=== PATIENT | male | born 1945 | race Caucasian/White ===

== ENCOUNTER 2017-01-01 15:27 | Emergency (ER) | payer OTHER ==
[2017-01-01 16:08] LABS: BASOPHILS 0.2 % (0-2); EOSINOPHILS 2.1 % (0-7); HEMATOCRIT 38.6 % (42.0-54.0); HEMOGLOBIN 13.3 g/dL (13.5-17.5); IMMATURE GRANULOCYTES 0.1 % (0-5); LYMPHOCYTES 17.4 % (15-50); MCH 27.8 pg (26.0-34.0); MCHC 34.5 g/dL (31.0-37.0); MCV 80.6 fL (80.0-100.0); MEAN PLATELET VOLUME 9.7 fL (7.4-10.4); MONOCYTES 6.9 % (2-11); NEUTROPHILS 73.3 % (40-80); PLATELET COUNT 221 10x3/uL (130-400); RBC 4.79 10x6/uL (4.20-6.10); RDW 13.6 % (11.5-14.5); WBC 8.7 10x3/uL (4.8-10.8)
[2017-01-01 16:21] LABS: ALBUMIN 3.6 g/dL (3.4-5.0); ALKALINE PHOSPHATASE 97 U/L (46-116); ALT (SGPT) 20 U/L (10-68); BILIRUBIN - TOTAL 0.51 mg/dL (0.2-1.3); CALC OSMOLALITY 279 mosm/kg (275-300); CALCIUM 8.4 mg/dL (8.5-10.1); CARBON DIOXIDE 26.7 mmol/L (21.0-32.0); CHLORIDE - SERUM 104 mmol/L (98-107); CREATININE - SERUM 0.8 mg/dL (0.6-1.3); GLUCOSE 133 mg/dL (74-106); POTASSIUM - SERUM 3.8 mmol/L (3.5-5.1); PROTEIN - SERUM 7.1 g/dL (6.4-8.2); SODIUM 140 mmol/L (136-145); UREA NITROGEN 10 mg/dL (7-18); eGFR NON AFRICAN AMERICAN > 90 mL/min (90-120)
[2017-01-01 16:33] LABS: CHOL - HDL RATIO 2.9 ratio (2.3-4.9); CHOLESTEROL, TOTAL 104 mg/dL (0-200); CKMB 1.4 U/L (0.0-3.6); CREATINE KINASE 77 UL (21-232); HDL CHOLESTEROL 36 mg/dL (32-96); LDL CHOLESTEROL 48 mg/dL (0-100); LDL-HDL RATIO 1.3 ratio (1.5-3.5); TRIGLYCERIDE 104 mg/dL (30-200)
[2017-01-01 16:35] LABS: TROPONIN-I < 0.017 ng/mL (0.000-0.060)
== END 2017-01-01 17:48 | disposition home or self-care (01) ==
LOC: D.ER 15:27
PROVIDERS: Emergency Medicine
DX: R07.9 Chest pain, unspecified (principal); I25.10 Atherosclerotic heart disease of native coronary artery without angina pectoris; I10 Essential (primary) hypertension; E11.9 Type 2 diabetes mellitus without complications; R05 Cough; R06.00 Dyspnea, unspecified; R11.2 Nausea with vomiting, unspecified

== ENCOUNTER 2017-11-02 20:14 | Emergency (ER) | payer OTHER ==
[2017-11-02 21:00] LABS: BASOPHILS 0.2 % (0-2); EOSINOPHILS 2.5 % (0-7); HEMATOCRIT 39.3 % (42.0-54.0); HEMOGLOBIN 13.3 g/dL (13.5-17.5); IMMATURE GRANULOCYTES 0.2 % (0-5); LYMPHOCYTES 19.1 % (15-50); MCH 27.2 pg (26.0-34.0); MCHC 33.8 g/dL (31.0-37.0); MCV 80.4 fL (80.0-100.0); MEAN PLATELET VOLUME 9.7 fL (7.4-10.4); MONOCYTES 6.4 % (2-11); NEUTROPHILS 71.6 % (40-80); PLATELET COUNT 206 10x3/uL (130-400); RBC 4.89 10x6/uL (4.20-6.10); RDW 14.1 % (11.5-14.5)
[2017-11-02 21:19] LABS: ALBUMIN 3.6 g/dL (3.4-5.0); ALKALINE PHOSPHATASE 89 U/L (46-116); ALT (SGPT) 22 U/L (10-68); BILIRUBIN - TOTAL 0.31 mg/dL (0.2-1.3); CALC OSMOLALITY 284 mosm/kg (275-300); CALCIUM 8.4 mg/dL (8.5-10.1); CARBON DIOXIDE 26.1 mmol/L (21.0-32.0); CHLORIDE - SERUM 105 mmol/L (98-107); CREATININE - SERUM 0.8 mg/dL (0.6-1.3); POTASSIUM - SERUM 3.4 mmol/L (3.5-5.1); SODIUM 143 mmol/L (136-145); UREA NITROGEN 17 mg/dL (7-18); eGFR NON AFRICAN AMERICAN > 90 mL/min (90-120)
[2017-11-02 21:28] LABS: GLUCOSE 71 mg/dL (74-106)
[2017-11-02 21:30] LABS: CHOL - HDL RATIO 2.9 ratio (2.3-4.9); CHOLESTEROL, TOTAL 103 mg/dL (0-200); CKMB 1.2 U/L (0.0-3.6); CREATINE KINASE 76 UL (21-232); HDL CHOLESTEROL 36 mg/dL (32-96); LDL CHOLESTEROL 52 mg/dL (0-100); LDL-HDL RATIO 1.4 ratio (1.5-3.5); TRIGLYCERIDE 78 mg/dL (30-200)
[2017-11-02 21:31] LABS: TROPONIN-I < 0.017 ng/mL (0.000-0.060)
== END 2017-11-02 23:39 | disposition short-term general hospital (02) ==
LOC: D.ER 20:14
PROVIDERS: Family Medicine
DX: R07.9 Chest pain, unspecified (principal); I20.0 Unstable angina; I25.10 Atherosclerotic heart disease of native coronary artery without angina pectoris; I10 Essential (primary) hypertension; E11.9 Type 2 diabetes mellitus without complications

== ENCOUNTER 2018-03-17 13:54 | Outpatient (CLI) | payer MEDICARE, MEDICAID ==
[~2018-03-17] VITALS: Ht 167.6 cm; Wt 101.2 kg
--- NOTE | ~2018-03-17 | HEMODYNAMI ---
PATIENT:SELINA BENAVIDES MEDICAL RECORD: [id number] : 49 LOCATION:D. D.2116 ADMISSION DATE: 03/17/18 Generatedon:03/19/201814:14 Patient name: SELINA BENAVIDES Patient #: [id number] SSN: D OB: 1945 Date of study: 03/19/2018 Page: Of Hemodynamic Procedure Report Patient Data Patient Demographics Procedure consent was obtained First Name: SELINA Gender: Male Last Name: MAKAYLA : 1945 Patient #: [id number] Age: 72 year(s) Race: Unknown Additional ID: [id number] Contact details Address: [address] [place] [address] [facility] State: [place] City: [place] Zip code: [address] Past Medical History Allergies Allergen Reaction Date Comments Reported Sulfa drugs 03/18/2018 Sulfa drugs 03/19/2018 Admission Admission Data Admission Date: 03/17/2018 Admission Time: 16:10 Admit Source: Other Room #: D.7 Procedure Procedure Types Cath Procedure PCI Procedure Coronary Stent Coronary Stent Initial Peripheral Cath Diagnostic Procedure Guillotine Operator Peripheral Procedures Rngva-Bphkspo-Ayx-Off Procedure Description Procedure Date Procedure Date: 03/19/2018 Procedure Start Time: 13:58 Procedure End Time: 14:13 Procedure Staff Name Function Agustin Garcia MD Performing Physician Chan Garcia RT Monitor Sanjana De La Rosa RT Scrub Guera Cox RN Nurse Leidy Norman RN Nurse Procedure Data Cath Procedure Fluoroscopy Diagnostic fluoroscopy Total fluoroscopy Time: 2.8 time: 2.8 min min Diagnostic fluoroscopy Total fluoroscopy dose: 425 dose: 425 mGy mGy Contrast Material Contrast Material Type Amount (ml) Isovue 300 85 Entry Location Entry Primary Successful Side Size Upsize Upsize Entry Closure Succes sful Closure Location (Fr) 1 (Fr) 2 (Fr) Remarks Device Remarks Femoral Right 6 Fr Exoseal artery Short Estimated blood loss: 10 ml Diagnostic catheters Device Type Used For End Catheter Placement DIAGNOSTIC UF 5Fr Abdominal catheter ([id number]) aortogram with runoff Procedure Complications No complications Procedure Medications Medication Administration Route Dosage 0.9% NaCl I.V. 100 ml/hr Oxygen etCO2 Nasal cannula 2 l/min Lidocaine 2% added to field 20 Heparin Flush Bag added to field 2 bags (1000units/500ml NS) Versed I.V. 2 mg Fentanyl I.V. 100 mcg Heparin Bolus I.V. 4000 units Versed I.V. 2 mg Fentanyl I.V. 50 mcg Hemodynamics Rest Heart Rate: 53 (bpm) Snapshots Pre Cath Intra NCS Post Cath Vital Signs Time Heart Resp SPO2 etCO2 NIBP (mmHg) Rhythm Pain Sedation Rate (ipm) (%) (mmHg) Status Level (bpm) 13:38:11 50 22 96 34.5 142/63(117) SB 0 (11) 10(A) , No pain 13:42:39 49 11 95 35.2 132/59(120) SB 0 (11) 10(A) , No pain 13:47:48 56 22 97 33.7 136/64(109) SB 0 (11) 10(A) , No pain 13:51:58 51 22 95 29.2 114/65(104) SB 0 (11) 10(A) , No pain 13:56:18 48 14 97 36 130/57(111) SB 0 (11) 10(A) , No pain 14:01:34 57 20 96 54 135/64(102) SB 0 (11) 10(A) , No pain 14:05:58 62 17 97 48.7 132/64(98) NSR 0 (11) 10(A) , No pain 14:10:20 63 16 98 44.2 128/58(100) NSR 0 (11) 10(A) , No pain Medications Time Medication Route Dose Verified Delivered Reason Notes Effectiveness by by 13:46:53 0.9% NaCl I.V. 100 Agustin Guera used for ml/hr Jose Cox mentally impaired teacher 13:47:01 Oxygen etCO2 2 Agustin Guera used for Nasal l/min Jose Cox procedure cannula RN 13:47:11 Lidocaine 2% added 20ml Agustin Velez for local to vial Jose Garcia MD anesthetic field 13:47:17 Heparin Flush added 2 Agustinmony Velez used for Bag to bags Jose Garcia MD procedure (1000units/500ml field NS) 13:58:45 Versed I.V. 2 mg Agustin Guera for sedation Jose Cox RN 13:58:52 Fentanyl I.V. 100 Agustin Guera for sedation mcg Jose Cox RN 14:03:32 Heparin Bolus I.V. 4000 Agustin Guera for units Jose denny RN 14:05:40 Versed I.V. 2 mg Agustin Guera for sedation Jose Cox RN 14:05:47 Fentanyl I.V. 50 Agustin Guera for sedation mcg Jose Cox RN Procedure Log Time Note 13:11:10 Admit Source: Other 13:11:12 Diagnostic Cath status Elective 13:11:15 Time tracking: Regular hours (M-F 7:00 - 5:00) 13:11:19 Plan of Care:Hemodynamics will remain stable., Cardiac rhythm will remain stable., Comfort level will be maintained., Respiratory function will remain adequate., Patient/ family verbilizes understanding of procedure., Procedure tolerated without complication., Recovers from procedure without complications.. 13:20:11 Sanjana Counts RT(R) sent for patient. Start room use. 13:36:47 Vital chart was started 13:46:15 Patient received from PCU to CCL 1 Alert and oriented. Tansferred to table in Supine position. 13:46:20 Warm blankets applied, and ellie hugger turned on for patient comfort. 13:46:21 Correct patient and procedure confirmed by team. 13:46:24 Signed procedure consent form obtained from patient. 13:46:27 ECG and BP/O2 sat monitors applied to patient. 13:46:29 Baseline sample Acquired. 13:46:38 Rhythm: sinus bradycardia 13:46:41 Full Disclosure recording started 13:46:53 0.9% NaCl 100 ml/hr I.V. was administered by Guera Cox RN; used for procedure; 13:47:01 Oxygen 2 l/min etCO2 Nasal cannula was administered by Guera Cox RN; used for procedure; 13:47:11 Lidocaine 2% 20ml vial added to field was administered by Agustin Garcia MD; for local anesthetic; 13:47:17 Heparin Flush Bag (1000units/500ml NS) 2 bags added to field was administered by Agustin Garcia MD; used for procedure; 13:47:20 H&P Date Dictated: 03/17/2018 Within 30 days and on chart.. 13:47:21 Pre-procedure instructions explained to patient. 13:47:22 Pre-op teaching completed and patient verbalized understanding. 13:47:27 Family unavailable. 13:47:34 Patient NPO since Midnight. 13:47:43 Patient allergic to Sulfa drugs 13:47:48 Is the patient allergic to Iodine/contrast media? No. 13:47:52 Is patient on blood thinner?Yes 13:47:55 ACC The patient was administered the following blood thiners within the last 24 hours: ACCPlavix 13:49:05 Patient diabetic? Yes. 13:49:19 If diabetic: On Metformin? Yes 13:49:47 If on Metformin: Last Dose? 03/17/2018 13:49:50 ----Pre-sedation anethsthesia assessment.---- 13:49:53 Previous problem with sedation/anesthesia? No ? 13:49:59 Snore? Yes 13:50:00 Sleep apnea? Yes 13:50:02 Deviated septum? No 13:50:02 Opens mouth fully? Yes 13:50:03 Sticks out tongue? Yes 13:50:05 Airway obstruction? No ? 13:50:08 Dentures? No ? 13:50:16 Pre procedure: left dorsailis pedis pulse 2+ Normal; easily identifiable; not easily obliterated 13:50:20 Patient pain scale 0/10 ?. 13:50:50 IV patent on arrival in right hand with 0.9% NaCl at O. 13:50:55 Lab results completed and on chart. 13:51:00 Bilateral groins area was prepped with chlora-prep and draped in sterile fashion 13:51:01 Alarms reviewed by R. N. 13:51:02 Sharps counted by scrub and verified by R.N. 13:55:43 Use device set CATH PACK 13:55:46 Use device set TAUTH PCI 13:56:02 ACIST Syringe (82186) opened to sterile field. 13:56:03 ACIST Hand Control (34621) opened to sterile field. 13:56:04 ACIST Manifold (14062) opened to sterile field. 13:56:04 Medline Cath Pack ([id number]) opened to sterile field. 13:56:05 Bag Decanter (2001S) opened to sterile field. 13:56:05 DIAGNOSTIC WIRE .035 260cm J wire (972962) opened to sterile field. 13:56:06 INFLATOR Merit BasixCompak (KI7455) opened to sterile field. 13:56:09 CHOICE PT Extra Support 182cm wire ([id number]) opened to sterile field. 13:56:11 Tegaderm 4 x 4 (1626W) opened to sterile field. 13:56:12 SHEATH Prelude 6Fr 0.035 (TZE-1R-17-035) opened to sterile field. 13:56:59 Final Timeout: patient, procedure, and site verified with staff and physician. All members of the team are in agreement. 13:57:02 Left groin site verified by team. 13:57:05 Physical assessment completed. ASA score P 2 - A patient with mild systemic disease as per Agustin Garcia MD. 13:57:08 Sedation plan: IV Moderate Sedation Medication:Versed, Fentanyl 13:58:43 Procedure started. 13:58:45 Versed 2 mg I.V. was administered by Guera Cox RN; for sedation; 13:58:49 Local anesthetic to left femerol artery with Lidocaine 2% by Agustin Garcia MD.INITIAL ACCESS ONLY 13:58:52 Fentanyl 100 mcg I.V. was administered by Guera Cox RN; for sedation; 14:00:20 GUIDE 6FR AR 2.0 SH catheter ([id number]) opened to sterile field. 14:00:35 A 6 Fr Short sheath was inserted into the Right Femoral artery 14:00:48 A DIAGNOSTIC UF 5Fr catheter ([id number]) was advanced over the wire and used for Abdominal aortogram with runoff. 14:02:28 Catheter removed. 14:02:37 6 Fr AR 2.0 SH guide catheter was inserted over the wire 14:03:32 Heparin Bolus 4000 units I.V. was administered by Guera Cox RN; for anticoagulation; 14:04:08 CHOICE PT ES wire advanced. 14:05:40 Versed 2 mg I.V. was administered by Guera Cox RN; for sedation; 14:05:44 Place stent Inflation Number: 1 A DEMOND RX 2.5 x 22 stent ([id number]) was prepped and advanced across the Mid RCA. The stent was deployed at 17 DIVYA for 0:05 (min:sec). 14:05:47 Fentanyl 50 mcg I.V. was administered by Guera Cox RN; for sedation; 14:05:54 Inflation number: 2 The stent balloon was then re-inflated across the Mid RCA to 17 DIVYA for 0:06 (min:sec). 14:06:25 Inflation number: 3 The stent balloon was then re-inflated across the Mid RCA to 21 DIVYA for 0:05 (min:sec). 14:07:09 Stent catheter was removed intact over wire. 14:07:09 Wire removed. 14:07:10 Guide catheter removed. 14:07:21 Sheath removed intact; hemostasis achieved with Exoseal to the Right Femoral artery. 14:07:26 Procedure ended.(Physican Out) 14:07:36 Fluoroscopy time 02.80 minutes. 14:07:44 Flurop Dose total: 425 14:07:44 Fluoroscopy dose: 425 mGy 14:07:47 Contrast amount:Isovue 300 85ml. 14:07:49 Sharps counted by scrub and verified by R.N. 14:08:09 Insertion/operative site no bleeding no hematoma. 14:08:16 Post-op/insertion site Right Femoral artery dressed using a 4 x 4 and Tegaderm. 14:08:26 Post right femoral artery:stable, clean and dry 14:08:27 Post Procedure Pulses reassessed and unchanged 14:08:30 Post-procedure physical assessment completed. ASA score P 2 - A patient with mild systemic disease as per Agustin Garcia MD. 14:08:32 Post procedure rhythm: unchanged. 14:08:36 Estimated blood loss: 10 ml 14:08:38 Patient needs reinforcement of post procedure teaching. 14:08:40 Post procedure instruction explained to patient.Patient verbalizes understanding. 14:09:03 Procedure Complication : No complications 14:09:05 See physician's report for complete and final results. 14:10:28 EXOSEAL 6Fr (EX600) opened to sterile field. 14:10:52 Procedure and supply charges have been captured, reviewed, submitted and are correct. 14:12:23 Vital chart was stopped 14:12:27 Report given to PCU. 14:12:30 Patient transfered to PCU with Bed. 14:13:57 Procedure ended. 14:13:57 Full Disclosure recording stopped 14:14:01 End room use (Document Last) Intervention Summary Intervention Notes Time ActionType Lesion and Equipment Used Action# Pressure Duration Attributes 14:05:44 Place stent Mid RCA DEMOND RX 2.5 x 1 17 00:06 22 stent ([id number]) 14:05:54 Reinflate Mid RCA DEMOND RX 2.5 x 2 17 00:06 stent 22 stent balloon ([id number]) 14:06:25 Reinflate Mid RCA DEMOND RX 2.5 x 3 21 00:05 stent 22 stent balloon ([id number]) Device Usage Item Name Manufacture Quantity Catalog Number Hospital Part Current Minimal Lot# / Charge Number Stock Stock Serial# Code ACIST Syringe Acist 1 52720 945113 046898 644039 20 (44953) Medical Systems [employer] ACIST Hand Acist 1 18608 021163 723424 043570 5 Control (26923) Medical Systems Inc ACIST Manifold Acist 1 33978 062608 736416 139283 5 (81490) Medical Systems Inc Medline Cath Cardinal 1 [id number] 715799 26793 004603 5 Showbie ([id number]) Bag Decanter Microtek 1 2001S 502973 14309 080072 5 (2001S) Medical Inc. DIAGNOSTIC WIRE [address] [place] 1 311536 165408 365568 295827 30 .035 260cm J wire (355248) INFLATOR Merit Merit 1 TY3614 697814 357749 591048 [facility] [employer] (CT1230) CHOICE PT Extra Atkins 1 [id number] 879765 596173 315259 5 Support 182cm Scientific wire ([id number]) Tegaderm 4 x 4 3M 1 1626W 864986 037934 016099 5 (1626W) SHEATH Prelude Merit 1 [id number]-0Q-67-35 510106 1820186 132718 5 6Fr 0.035 Medical (KXP-1E-04-035) GUIDE 6FR AR Medtronic 1 [id number] 001734 14816 307953 1 2.0 SH catheter ([id number]) DIAGNOSTIC UF Cardinal 1 [id number] 535342 412766 595457 10 5Fr catheter AskU (412750L0) DEMOND RX 2.5 x Medtronic 1 [id number] 376764 7023462 788895 5 [id number] 22 stent ([id number]) EXOSEAL 6Fr Cardinal 1 EX600 505799 538203 020914 10 (EX600) Health Signature Audit [place] Stage Time Signature Unsigned Intra-Procedure 03/19/2018 Sanjana 2:14:14 PM Counts RT(R) Signatures Monitor : Chan Garcia RT Signature : Date : Time : [address] [address]
--- NOTE | ~2018-03-17 | OP ---
PATIENT NAME: SELINA BENAVIDES MEDICAL RECORD: [id number] :49 LOCATION:D.M2 D.2117 ADMISSION DATE:03/17/18 SURGEON: PARUL RUIZ MD DATE OF OPERATION: 03/19/2018 PROCEDURES: 1. PTCA stent RCA. 2. Selective coronary angiography. INDICATION: Angina and coronary artery disease. PROCEDURE IN DETAIL: After informed consent was obtained and after detailed description of the risks, benefits as well as alternative therapies, the patient elected to proceed with angiogram and angioplasty. The right femoral area had a preexisting sheath from aortofemoral runoff. All catheters exchanged through this sheath. FINDINGS: The right coronary has 70% stenosis after the previously placed stent. This was addressed with a 2.5 x 22 mm Adrian stent taken to 21 atmospheres. Result was 0% residual stenosis. OVERALL IMPRESSION: Successful PTCA stent of the RCA going from 70% initial stenosis to 0% residual. TRANSINT:[id number] Voice Confirmation ID: [id number] DOCUMENT ID: [id number] PARUL RUIZ MD at 0924 CC: [id number] DICTATION DATE: 03/19/18 1416 PANEL MAKER: 03/19/18 1445 DIS IN 03/19/18 [facility] [id number] [place] [address]
--- NOTE | ~2018-03-17 | OP ---
PATIENT NAME: SELINA BENAVIDES MEDICAL RECORD: [id number] :49 LOCATION:D.M2 D.2117 ADMISSION DATE:03/17/18 SURGEON: PARUL RUIZ MD DATE OF OPERATION: 03/18/2018 DATE OF SERVICE: 03/18/2018 PROCEDURES: 1. PTCA stent of LAD. 2. Left heart catheterization. 3. Selective coronary angiography. 4. Left ventriculogram. INDICATION: Non-Q-wave myocardial infarction, unstable angina and coronary artery disease. DESCRIPTION OF PROCEDURE: After informed consent was obtained and after detailed description of risks, benefits as well as alternative therapies, the patient elected to proceed with angiogram and angioplasty. The right femoral area was prepped and draped in normal sterile fashion. Right femoral artery was cannulated via modified Seldinger technique with placement of 6-Tamazight sheath. All catheters exchanged through this sheath. FINDINGS: Left ventriculogram was performed in standard 30-degree VIRAMONTES view, reveals anteroapical hypokinesis. Overall ejection fraction 35% to 40%. SELECTIVE CORONARY ANGIOGRAPHY: 1. Left main is with no significant angiographic disease. 2. Left anterior descending has previously placed stents with 95% in-stent restenosis, 95% stenosis after the stents. 3. The left circumflex has moderate irregularities, but no flow-limiting stenosis. 4. The right coronary has previously placed stents with 75-80% in-stent restenosis in the mid vessel. PTCA STENT OF THE LAD: The stents used were 2.0 x 18 and 2.5 x 26, both Adrian stents. Result was 0% residual stenosis. OVERALL IMPRESSION: Successful percutaneous transluminal coronary angioplasty stent of the left anterior descending going from 95% initial stenosis to 0% residual. PLAN: For PTCA stent of the RCA in the near future. TRANSINT:[id number] Voice Confirmation ID: [id number] DOCUMENT ID: [id number] PARUL RUIZ MD at 0924 CC: [id number] DICTATION DATE: 03/18/18 1433 SUSPENDER MAKER: 03/18/18 1503 DIS IN 03/19/18 [place] [address]
--- NOTE | ~2018-03-17 | OP ---
PATIENT NAME: SELINA BENAVIDES MEDICAL RECORD: [id number] :49 LOCATION:D.M2 D.2117 ADMISSION DATE:03/17/18 SURGEON: PARUL RUIZ MD DATE OF OPERATION: 03/19/2018 PROCEDURES: 1. Aortofemoral runoff. 2. Abdominal aortography. INDICATION: Claudication and peripheral vascular disease. PROCEDURE IN DETAIL: After informed consent was obtained and after a detailed description of the risks, benefits as well as alternative therapies, the patient elected to proceed with angiogram and aortofemoral runoff. The right femoral area was prepped and draped in normal sterile fashion. Right femoral artery was cannulated via modified Seldinger technique with placement of 6-Hungarian sheath. All catheters exchanged through this sheath. FINDINGS: Abdominal aortography was performed. The catheter was pulled down for aortofemoral runoff. Abdominal aortography reveals no significant abdominal aortic disease, no dissection or aneurysm formation or renal artery stenosis. RIGHT LEG: A. Iliac: The common internal and external iliacs have mild irregularities, but no flow-limiting stenosis. No stenosis greater than 20%. B. Femoral system: The common superficial and deep femoral have moderate irregularities, but no flow-limiting stenosis. No stenosis greater than 20%. Popliteal and infrapopliteal vessels are widely patent with good 3-vessel runoff to the foot. LEFT LEG: A. Iliac: The common internal and external iliacs have mild irregularities, but no flow-limiting stenosis. No stenosis greater than 20%. B. Femoral system: The common superficial and deep femoral have moderate irregularities, but no flow-limiting stenosis. No stenosis greater than 20%. Popliteal and infrapopliteal vessels are widely patent with good 3-vessel runoff to the foot. OVERALL IMPRESSION: Minimal peripheral vascular disease is present. No flow-limiting stenosis. TRANSINT:[id number] Voice Confirmation ID: [id number] DOCUMENT ID: [id number] PARUL RUIZ MD at 0924 CC: [id number] DICTATION DATE: 03/19/18 1416 BOAT BUILDER AND REPAIRER: 03/19/18 1444 DIS IN 03/19/18 [facility] [address] [place] [address]
--- NOTE | ~2018-03-17 | MORECARE ---
CASE MANAGEMENT DISCHARGE SUMMARY PATIENT: SELINA BENAVIDES UNIT: [id number] ADM DATE: 03/17/18 AGE: 72 : [birth year] SEX: M ROOM/BED: D.7 AUTHOR: BURKE VIERA PHYSICIAN: REFERRING PHYSICIAN: PARUL RUIZ MD DATE OF SERVICE: 03/22/18 Discharge Plan Patient Name: SELINA BENAVIDES [facility] [facility] 1945 Planned Disposition: Home Anticipated Discharge Date: 03/19/18 Discharge Date: 03/19/2018 Expected LOS: 2 Initial Reviewer: [email or web address] Initial Review Date: 03/22/2018 Generated: 03/22/18 9:36 am Coverage Notice Reviewer: [email or web address] Malick Cheema Notice Issued Date-Time: 03/18/2018 14:00 Notice Type: Medicare Outpatient Observation Notice Notice Delivered To: Other Relationship to Patient: Stoper Name: Delivery Method: - Kalyn Days: Prior Verbal Notification: Recipient Understood Notice: Recipient Signature: Med Rec Note Co-signed by Attending: Coverage Notice Comment: Patient Name: SELINA BENAVIDES Page [phone] at 0836 All edits/amendments must be made on the electronic document DICTATION DATE: 03/22/18 0836 FINANCIAL REPORT SERVICE SALES AGENT: SHAHRIAR 03/22/1836 RPT#: [id number] DC DATE:03/19/18 STATUS: DIS IN [facility] [address] [place] [address] END OF REPORT
--- NOTE | ~2018-03-17 | HEMODYNAMI ---
PATIENT:SELINA BENAVIDES MEDICAL RECORD: [id number] : 49 [facility] ADMISSION DATE: 03/17/18 Generatedon:03/18/201814:33 Patient name: SELINA BENAVIDES Patient #: [id number] SSN: D OB: 1945 Date of study: 03/18/2018 Page: Of Hemodynamic Procedure Report Patient Data Patient Demographics Procedure consent was obtained First Name: SELINA Gender: Male Last Name: MAKAYLA : 1945 Patient #: [id number] Age: 72 year(s) Race: Unknown Additional ID: [id number] Contact details [address]: [address] [place] [address] [facility] State: [place] City: [place] Zip code: [address] Past Medical History Allergies Allergen Reaction Date Comments Reported Sulfa drugs 03/18/2018 Admission Admission Data Admission Date: 03/17/2018 Admission Time: 16:10 Room #: 2116 Procedure Procedure Types Cath Procedure Diagnostic Procedure [facility] w/Coronaries PCI Procedure Coronary Stent Coronary Stent Initial Procedure Description Procedure Date Procedure Date: 03/18/2018 Procedure Start Time: 14:12 Procedure End Time: 14:28 Procedure Staff Name Function Agustin Garcia MD Performing Physician Sanjana De La Rosa RT Monitor Manoj Casey RN Nurse Aubrey Brannon RT Scrub Procedure Data Cath Procedure Fluoroscopy Diagnostic fluoroscopy Total fluoroscopy Time: 4 time: 4 min min Diagnostic fluoroscopy Total fluoroscopy dose: 609 dose: 609 mGy mGy Contrast Material Contrast Material Type Amount (ml) Isovue 300 113 Entry Location Entry Primary Successful Side Size Upsize Upsize Entry Closure Succes sful Closure Location (Fr) 1 (Fr) 2 (Fr) Remarks Device Remarks Femoral Right 5 Fr 6 Fr Exoseal artery Short Estimated blood loss: 10 ml Diagnostic catheters Device Type Used For End Catheter Placement MULTIPACK Pigtail 5 Fr LV Angiography catheter MULTIPACK JL 4.0 5Fr Left Coronary catheter Angiography MULTIPACK 3DRC 5Fr Right Coronary catheter Angiography Procedure Complications No complications Procedure Medications Medication Administration Route Dosage Oxygen etCO2 Nasal cannula 2 l/min Heparin Flush Bag added to field 2 bags (1000units/500ml NS) 0.9% NaCl I.V. 100 ml/hr Fentanyl I.V. 50 mcg Versed I.V. 1 mg Fentanyl I.V. 50 mcg Versed I.V. 1 mg Heparin Bolus I.V. 4000 units Hemodynamics Rest Heart Rate: 70 (bpm) Snapshots Pre Cath Intra NCS Post Cath Vital Signs Time Heart Resp SPO2 etCO2 NIBP (mmHg) Rhythm Pain Sedation Rate (ipm) (%) (mmHg) Status Level (bpm) 14:00:28 65 16 91 21.8 156/79(128) NSR 0 (11) 10(A) , No pain 14:04:59 65 18 95 28.6 157/79(114) NSR 0 (11) 10(A) , No pain 14:09:29 69 17 95 23.3 156/75(122) NSR 0 (11) 10(A) , No pain 14:13:57 64 17 95 21.8 152/78(121) NSR 0 (11) 10(A) , No pain 14:18:15 72 17 96 24 148/100(120) NSR 0 (11) 10(A) , No pain 14:22:48 67 17 96 21.8 149/69(111) NSR 0 (11) 10(A) , No pain 14:27:14 66 17 96 23.3 150/73(126) NSR 0 (11) 10(A) , No pain Medications Time Medication Route Dose Verified Delivered Reason Notes Effectiveness by by 13:58:45 Oxygen etCO2 2 Agustin Aranda Per physician Nasal l/min Jose Casey RN cannula 13:58:58 Heparin Flush added 2 Agustin Aranda used for Bag to bags Jose Casey associate professor of economics (1000units/500ml field NS) 13:59:07 0.9% NaCl I.V. 100 Agustin Aranda Per physician ml/hr Jose Casey RN 14:13:17 Fentanyl I.V. 50 Agustin Aranda for sedation mcg Jose Casey RN 14:13:23 Versed I.V. 1 mg Agustin Aranda for sedation Jose Casey RN 14:19:51 Fentanyl I.V. 50 Agustin Aranda for sedation mcg Jose Casey RN 14:19:54 Versed I.V. 1 mg Agustin Aranda for sedation Jose Casey RN 14:20:05 Heparin Bolus I.V. 4000 Agustin Aranda for units Jose Casey RN anticoagulation Procedure Log Time Note 13:30:57 Aubrey Brannon RT(R) sent for patient. Start room use. 13:34:30 Time tracking: Regular hours (M-F 7:00 - 5:00) 13:34:35 Plan of Care:Hemodynamics will remain stable., Cardiac rhythm will remain stable., Comfort level will be maintained., Respiratory function will remain adequate., Patient/ family verbilizes understanding of procedure., Procedure tolerated without complication., Recovers from procedure without complications.. 13:52:25 Patient received from PCU to CCL 3 Alert and oriented. Tansferred to table in Supine position. 13:52:26 Warm blankets applied, and ellie hugger turned on for patient comfort. 13:52:26 Correct patient and procedure confirmed by team. 13:52:27 Signed procedure consent form obtained from patient. 13:52:28 ECG and BP/O2 sat monitors applied to patient. 13:52:28 Full Disclosure recording started 13:58:45 Oxygen 2 l/min etCO2 Nasal cannula was administered by Manoj Casey RN; Per physician; 13:58:58 Heparin Flush Bag (1000units/500ml NS) 2 bags added to field was administered by Manoj Casey RN; used for procedure; 13:59:07 0.9% NaCl 100 ml/hr I.V. was administered by Manoj Casey RN; Per physician; 13:59:09 Vital chart was started 14:02:05 Rhythm: sinus rhythm 14:02:06 Baseline sample Acquired. 14:02:11 H&P Date Dictated: 03/18/2018 Within 30 days and on chart.. 14:02:12 Pre-procedure instructions explained to patient. 14:02:12 Pre-op teaching completed and patient verbalized understanding. 14:02:14 Family in patients room. 14:02:16 Patient NPO since Midnight. 14:02:22 Patient allergic to Sulfa drugs 14:02:24 Is the patient allergic to Iodine/contrast media? No. 14:02:25 Is patient on blood thinner?Yes 14:02:27 ACC The patient was administered the following blood thiners within the last 24 hours: ACCPlavix 14:02:29 Patient diabetic? Yes. 14:02:30 If diabetic: On Metformin? Yes 14:02:36 If on Metformin: Last Dose? 03/17/2018 14:02:40 Previous problem with sedation/anesthesia? No ? 14:02:41 Snore? Yes 14:02:42 Sleep apnea? Yes 14:02:43 Deviated septum? No 14:02:43 Opens mouth fully? Yes 14:02:44 Sticks out tongue? Yes 14:02:47 Airway obstruction? Yes COPD 14:02:53 Dentures? No NO TEETH 14:02:59 Pre procedure: right dorsailis pedis pulse 1+ Palpable, but thready & weak; easily obliterated 14:03:[address] test Ulnar > 7 seconds. 14:03:04 Patient pain scale 7/10 Chest. 14:03:25 IV patent on arrival in right hand with 0.9% NaCl at O. 14:03:28 Lab results completed and on chart. 14:03:32 Right groin area was prepped with chlora-prep and draped in sterile fashion 14:03:33 Alarms reviewed by R. N. 14:03:33 Sharps counted by scrub and verified by R.N. 14:03:39 Use device set Femoral Dx 14:03:40 ACIST Syringe (77355) opened to sterile field. 14:03:40 Bag Decanter (2001S) opened to sterile field. 14:03:41 Medline Cath Pack ([id number]) opened to sterile field. 14:03:41 DIAGNOSTIC WIRE .035 260cm J wire (161071) opened to sterile field. 14:03:42 ACIST Hand Control (61215) opened to sterile field. 14:03:43 ACIST Manifold (29138) opened to sterile field. 14:03:43 DIAGNOSTIC Multipack 5Fr catheter set ([id number]) opened to sterile field. 14:03:44 Tegaderm 4 x 4 (1626W) opened to sterile field. 14:03:46 SHEATH Prelude 5Fr 0.035 (XNY-7L-40-035) opened to sterile field. 14:11:04 Final Timeout: patient, procedure, and site verified with staff and physician. All members of the team are in agreement. 14:11:05 Right groin site verified by team. 14:11:08 Physical assessment completed. ASA score P 2 - A patient with mild systemic disease as per Agustin Garcia MD. 14:11:10 Sedation plan: IV Moderate Sedation Medication:Versed, Fentanyl 14:12:19 Procedure started. 14:12:28 Local anesthetic to right femoral artery with Lidocaine 2% by Agustin Garcia MD.INITIAL ACCESS ONLY 14:12:48 A 5 Fr sheath was inserted into the Right Femoral artery 14:13:17 Fentanyl 50 mcg I.V. was administered by Manoj Casey RN; for sedation; 14:13:23 Versed 1 mg I.V. was administered by Manoj Casey RN; for sedation; 14:13:46 A MULTIPACK Pigtail 5 Fr catheter was advanced over the wire and used for LV Angiography. 14:13:48 Zero performed for pressure channel P1 14:13:52 Zero performed for pressure channel P1 14:14:39 LV gram done using VIRAMONTES 14:14:44 EF : 35 % 14:14:46 Injector settings: Ml/sec: 10, Volume: 20, 14:14:48 Catheter removed. 14:14:53 A MULTIPACK JL 4.0 5Fr catheter was advanced over the wire and used for Left Coronary Angiography. 14:15:54 Catheter removed. 14:15:59 A MULTIPACK 3DRC 5Fr catheter was advanced over the wire and used for Right Coronary Angiography. 14:16:14 Use device set [facility] PCI 14:16:15 SHEATH Prelude 6Fr 0.035 (GJM-3A-87-035) opened to sterile field. 14:16:18 INFLATOR Merit BasixCompak (FY4927) opened to sterile field. 14:16:22 CHOICE PT Extra Support 182cm wire ([id number]) opened to sterile field. 14:17:07 Catheter removed. 14:17:29 Sheath upsized to a 6 Fr Short. 14:17:38 6 Fr XBLAD 4.0 guide catheter was inserted over the wire 14:18:22 GUIDE 6FR XBLAD 4.0 catheter ([id number]) opened to sterile field. 14:18:31 CHOICE PT ES wire advanced. 14:19:51 Fentanyl 50 mcg I.V. was administered by Manoj Casey RN; for sedation; 14::54 Versed 1 mg I.V. was administered by Manoj Casey RN; for sedation; 14:20:05 Heparin Bolus 4000 units I.V. was administered by Manoj Casey RN; for anticoagulation; 14::49 Inflate balloon Inflation number: 1 A EUPHORA 2.5 x 20 Balloon ([id number]) was prepped and advanced across the Dist LAD, then inflated to 13 DIVYA for 0:10 (min:sec). 14:21:35 Inflation number: 2 The EUPHORA 2.5 x 20 Balloon ([id number]) was reinflated across the Dist LAD, to 19 DIVYA for 0:05 (min:sec). 14:21:50 Balloon removed over the wire. 14:23:04 Place stent Inflation Number: 3 A DEMOND RX 2.0 x 18 stent ([id number]) was prepped and advanced across the Dist LAD. The stent was deployed at 11 DIVYA for 0:10 (min:sec). 14:24:20 Stent catheter was removed intact over wire. 14:24:37 Place stent Inflation Number: 4 A DEMOND RX 2.5 x 26 stent ([id number]) was prepped and advanced across the Dist LAD. The stent was deployed at 19 DIVYA for 0:05 (min:sec). 14:25:00 Stent catheter was removed intact over wire. 14:25:00 Wire removed. 14:25:00 Guide catheter removed. 14:25:09 Sheath removed intact; hemostasis achieved with Exoseal to the Right Femoral artery. 14:25:11 Procedure ended.(Physican Out) 14:25:40 Fluoroscopy time 04.00 minutes. 14:25:46 Flurop Dose total: 609 14:25:46 Fluoroscopy dose: 609 mGy 14:25:49 Contrast amount:Isovue 300 113ml. 14:25:51 Sharps counted by scrub and verified by R.N. 14:25:52 Insertion/operative site no bleeding no hematoma. 14:25:54 Post-op/insertion site Right Femoral artery dressed using a 4 x 4 and Tegaderm. 14:25:58 Post right femoral artery:stable, clean and dry 14:26:00 Post Procedure Pulses reassessed and unchanged 14:26:04 Post-procedure physical assessment completed. ASA score P 2 - A patient with mild systemic disease as per Agustin Garcia MD. 14:26:09 Post procedure rhythm: unchanged. 14:26:13 Estimated blood loss: 10 ml 14:26:15 Post procedure instruction explained to patient.Patient verbalizes understanding. 14:26:15 Patient needs reinforcement of post procedure teaching. 14:26:32 Procedure type changed to Cath procedure, Diagnostic procedure, LHC, LHC w/Coronaries, PCI procedure, Coronary Stent, Coronary Stent Initial 14:26:50 Procedure Complication : No complications 14:26:52 See physician's report for complete and final results. 14:27:02 EXOSEAL 6Fr (EX600) opened to sterile field. 14:28:23 Procedure and supply charges have been captured, reviewed, submitted and are correct. 14:28:28 Vital chart was stopped 14:28:31 Report given to PCU. 14:28:34 Patient transfered to PCU with Bed. 14:28:44 Procedure ended. 14:28:44 Full Disclosure recording stopped 14:28:47 End room use (Document Last) Intervention Summary Intervention Notes Time ActionType Lesion and Equipment Used Action# Pressure Duration Attributes 14:20:49 Inflate Dist LAD EUPHORA 2.5 x 1 13 00:10 balloon 20 Balloon ([id number]) 14:21:35 Reinflate Dist LAD EUPHORA 2.5 x 2 19 00:05 balloon 20 Balloon ([id number]) 14:23:04 Place stent Dist LAD DEMOND RX 2.0 x 3 11 00:10 18 stent ([id number]) 14:24:37 Place stent Dist LAD DEMOND RX 2.5 x 4 19 00:06 26 stent ([id number]) Device Usage Item Name Manufacture Quantity Catalog Number Hospital Part Current Minimal Lot# / Charge Number Stock Stock Serial# Code ACIST Syringe Acist 1 07981 [id number] 575605 382304 20 (72972) Medical POS on [employer] Inc Bag Decanter Microtek 1 563103 23574 623030 5 () Medical Inc. Medline Cath Cardinal 1 [id number] 067821 64473 576848 5 [facility] ([id number]) DIAGNOSTIC WIRE [address] [place] 1 469848 750204 243815 277841 30 .035 260cm J wire (690532) ACIST Hand Acist 1 94737 772993 373924 946585 5 Control (35465) Medical Systems Inc ACIST Manifold Acist 1 99710 182009 418792 213259 5 (25100) Medical Systems Inc DIAGNOSTIC Cardinal 1 CX8260 700998 27335 098340 30 Multipack 5Fr Health catheter set (OG7524) Tegaderm 4 x 4 3M 1 1626W 271653 552552 454650 5 (1626W) SHEATH Prelude Merit 1 XLJ-6T-74-035 822406 456494 045545 5 5Fr 0.035 Medical (CHL-9F-75-035) MULTIPACK Cardinal 1 011953 5 Pigtail 5 Fr Health catheter MULTIPACK JL Cardinal 1 397211 5 4.0 5Fr Health catheter MULTIPACK 3DRC Cardinal 1 112320 5 5Fr catheter Health SHEATH Prelude Merit 1 PDX-5C-73-35 595990 7833708 318794 5 6Fr 0.035 Medical (JTC-0A-66-035) INFLATOR Merit Merit 1 ZJ0978 118496 221307 407944 15 [place] (YX6970) CHOICE PT Extra [place]once 1 [id number] 625077 251046 878924 5 Support 182cm Scientific wire ([id number]) GUIDE 6FR XBLAD Cardinal 1 [id number] 740465 949535 211555 3 4.0 catheter Health (79132548) EUPHORA 2.5 x Medtronic 1 [id number] 763145 421367 557101 5 [id number] 20 Balloon ([id number]) DEMOND RX 2.0 x Medtronic 1 [id number] 113516 5455422 523117 5 [id number] 18 stent ([id number]) DEMOND RX 2.5 x Medtronic 1 [id number] 345770 2802527 254507 5 [id number] 26 stent ([id number]) EXOSEAL 6Fr Cardinal 1 EX600 893271 121429 187150 10 (EX600) Health Signature Audit [place] Stage Time Signature Unsigned Intra-Procedure 03/18/2018 Sanjana 2:32:58 PM Counts RT(R) Signatures Monitor : Sanjana Signature : Counts RT Date : Time : [address] [place] [address]
--- NOTE | ~2018-03-17 | HP ---
PATIENT: SELINA KULKARNI MEDICAL RECORD: [id number] ACCOUNT: [id number] LOCATION:[address] : 49 ADMISSION DATE: 03/17/18 PCP: No PCP HISTORY AND PHYSICAL EXAMINATION ADMITTING DIAGNOSES: 1. Non-Q-wave myocardial infarction. 2. Unstable angina. 3. Coronary artery disease. 4. Previous multivessel percutaneous transluminal coronary angioplasty stent, last being in December at the [facility]. 5. Hypertension. 6. Hyperlipidemia. HISTORY OF PRESENT ILLNESS: Mr. Kulkarni presents with increasing chest pain and shortness of breath that happened just today. His troponin is mildly elevated, compatible with a non-Q-wave myocardial infarction. His EKG is markedly abnormal with T-wave inversions in the lateral leads. PHYSICAL EXAMINATION: GENERAL APPEARANCE: Well-nourished, well-developed, appears stated age. Level of distress, comfortable. PSYCHIATRIC: Mental status, alert, normal affect. Orientation, oriented to time, place and person. EYES: Lids and conjunctiva, noninjected. No discharge, no pallor. ENT: Lips, teeth, gums, normal dentition. Oropharynx, no cyanosis, no pallor. NECK: Carotid arteries, bilateral normal upstroke, no bruits, no thrills. JUGULAR VEINS: No jugular venous pressure or distention. CERVICAL LYMPH NODES: Nontender, nonenlarged. THYROID: Not enlarged. Nontender. No nodules. LUNGS: Respiratory effort, unlabored. CHEST: Normal curvature. No thoracic deformity. No chest wall tenderness. Percussion, resonant. Auscultation, clear. No wheezes, no rales, no rhonchi. CARDIOVASCULAR: Precordial exam, nondisplaced. No heaves or pericardial thrills. Rate and rhythm, regular. Heart sounds, normal S1, normal S2. No S3, no gallop, no rub. Systolic murmur, not heard. Diastolic murmur, not heard. EXTREMITIES: No cyanosis, no edema. Peripheral pulses, full and equal in all extremities, except as noted. No bruits appreciated. ABDOMEN: Soft, nondistended. Normal aorta. No bruit. Nontender. No masses. Liver, nontender, no hepatomegaly. Spleen, nontender, no splenomegaly. MUSCULOSKELETAL: No joint tenderness. No joint swelling. No erythema. NEUROLOGICAL: Normal gait, normal strength, normal tone. SKIN: Warm and dry. OVERALL IMPRESSION: Non-Q-wave myocardial infarction in a patient with a past history of multivessel percutaneous transluminal coronary angioplasty stent, most likely he has recurrent hemodynamically significant coronary artery disease. We will proceed with coronary angiography in the a.m. Further care depends upon findings of the angiography. TRANSINT:[id number] Voice Confirmation ID: [id number] DOCUMENT ID: [id number] HISTORY AND PHYSICAL [id number] SELINA KULKARNI JEFFREY MD at 0924 CC: [id number] DICTATION DATE: 03/17/18 1557 CORPSMAN: 03/17/18 1607 DIS IN 03/19/18 [facility] [address] [place] [address]
--- NOTE | ~2018-03-17 | DS ---
PATIENT:SELINA KULKARNI :49 MEDICAL RECORD: [id number] DISCHARGE SUMMARY ADMISSION DATE: 03/17/18 DISCHARGE DATE: 03/19/18 DATE OF SERVICE: 03/19/2018 DATE OF DISCHARGE: 03/19/2018 DISCHARGE DIAGNOSES: 1. Unstable angina. 2. Coronary artery disease. 3. Percutaneous transluminal coronary angioplasty stent left anterior descending and right coronary artery this admission. 4. Peripheral vascular disease. 5. Hypertension. 6. Hyperlipidemia. HOSPITAL COURSE: Mr. Kulkarni presents with unstable anginal symptomatology, found to have significant disease of the LAD and RCA, underwent successful PTCA stent of above territories, was discharged home with the addition of aspirin and Plavix to his medical regimen. Will follow up with [facility] in 1 month. TRANSINT:[id number] Voice Confirmation ID: [id number] DOCUMENT ID: [id number] PARUL RUIZ MD at 0924 CC: [id number] DICTATION DATE: 03/19/18 1413 BEESWAX BLEACHER: 03/20/18 0041 DIS IN 03/19/18 [place] [address] [place] [address]
[2018-03-17 14:46] LABS: BASOPHILS 0.1 % (0-2); EOSINOPHILS 2.7 % (0-7); HEMATOCRIT 38.8 % (42.0-54.0); HEMOGLOBIN 13.2 g/dL (13.5-17.5); IMMATURE GRANULOCYTES 0.2 % (0-5); LYMPHOCYTES 15.5 % (15-50); MCH 26.9 pg (26.0-34.0); MEAN PLATELET VOLUME 10.1 fL (7.4-10.4); MONOCYTES 6.8 % (2-11); NEUTROPHILS 74.7 % (40-80); PLATELET COUNT 208 10x3/uL (130-400); RBC 4.91 10x6/uL (4.20-6.10); RDW 13.8 % (11.5-14.5); WBC 8.1 10x3/uL (4.8-10.8)
[2018-03-17 15:14] LABS: ALBUMIN 3.3 g/dL (3.4-5.0); ALKALINE PHOSPHATASE 99 U/L (46-116); ALT (SGPT) 22 U/L (10-68); BILIRUBIN - TOTAL 0.28 mg/dL (0.2-1.3); CALC OSMOLALITY 293 mosm/kg (275-300); CARBON DIOXIDE 26.8 mmol/L (21.0-32.0); CHLORIDE - SERUM 105 mmol/L (98-107); CREATININE - SERUM 0.9 mg/dL (0.6-1.3); POTASSIUM - SERUM 4.1 mmol/L (3.5-5.1); PROTEIN - SERUM 7.1 g/dL (6.4-8.2); SODIUM 139 mmol/L (136-145); UREA NITROGEN 18 mg/dL (7-18); eGFR NON AFRICAN AMERICAN 89 mL/min (90-120)
[2018-03-17 15:15] LABS: GLUCOSE 346 mg/dL (74-106)
[2018-03-17 15:30] LABS: CKMB 3.3 U/L (0.0-3.6); CREATINE KINASE 260 UL (21-232); PRO BNP 1907 pg/mL (0-125)
[2018-03-17 15:39] LABS: TROPONIN-I 0.717 ng/mL (0.000-0.060)
[2018-03-17 18:26] VITALS: BP 154/75; BMI 36.0
[2018-03-17 20:00] VITALS: BP 121/57
[2018-03-18 00:46] VITALS: BP 149/64
[2018-03-18 04:00] VITALS: BP 145/57
[2018-03-18 08:48] VITALS: BP 150/53
[2018-03-18 12:21] VITALS: BP 151/70
[2018-03-18 12:39] VITALS: Ht 167.6 cm; Wt 101.2 kg
[2018-03-18 16:56] VITALS: BP 144/65
[2018-03-18 23:12] VITALS: BP 130/53
[2018-03-19 02:38] VITALS: BP 130/58
[2018-03-19 06:07] VITALS: BP 144/68
[2018-03-19 08:00] VITALS: BP 136/50
[2018-03-19] MEDS ORDERED: ASPIRIN81 MG PO (15:03)
[2018-03-19] MEDS ORDERED: PLAVIX75 MG PO (15:03)
== END 2018-03-19 18:24 | disposition home or self-care (01) ==
LOC: OBSVTIME → D.ER 13:54 → D.OPS 13:54 → D.M2 16:10 → D.ER 16:10 → OBSVTIME 17:45 → D.ER 17:59 → EDSTATUS 03-18 10:00 → D.M2 03-19 18:24 → D.OPS 03-19 18:24 → D.M2 03-19 18:24
PROVIDERS: Emergency Medicine
DX: I21.4 Non-ST elevation (NSTEMI) myocardial infarction (principal); I25.110 Atherosclerotic heart disease of native coronary artery with unstable angina pectoris; I10 Essential (primary) hypertension; E78.5 Hyperlipidemia, unspecified; I73.9 Peripheral vascular disease, unspecified
CPT/HCPCS: 93458; C9600 ×2

== ENCOUNTER 2018-03-24 12:52 | Outpatient (CLI) | payer MEDICARE, MEDICAID ==
[~2018-03-24] VITALS: Ht 167.6 cm; Wt 99.8 kg
--- NOTE | ~2018-03-24 | OP ---
PATIENT NAME: SELINA BENAVIDES MEDICAL RECORD: [id number] :49 LOCATION:D.M2 D.2119 ADMISSION DATE:03/24/18 SURGEON: PARUL RUIZ MD DATE OF OPERATION: 03/25/2018 PROCEDURES: 1. PTCA stent left main. 2. PTCA stent LAD. 3. Intravascular ultrasound of left main. 4. Intravascular ultrasound of the LAD. 5. Left heart catheterization. 6. Selective coronary angiography. 7. Left ventriculogram. INDICATION: Unstable angina and coronary artery disease. PROCEDURE IN DETAIL: After informed consent was obtained and after detailed explanation of risks, benefits as well as alternative therapies, the patient elected to proceed with angiogram and angioplasty. The right femoral area was prepped and draped in normal sterile fashion. Right femoral artery was cannulated via modified Seldinger technique with placement of 6-Cymro sheath. All catheters exchanged through this sheath. FINDINGS: 1. Left main has greater than 70% stenosis confirmed by intravascular ultrasound. 2. The left anterior descending has 75% in-stent restenosis confirmed by intravascular ultrasound. 3. The right coronary has previously placed stents, these are widely patent with no significant in-stent restenosis. 4. Left ventriculogram was performed in standard 30-degree VIRAMONTES view, reveals good cardiac wall motion throughout all segments. Overall ejection fraction preserved at 50%. PTCA STENT OF THE LEFT MAIN AND LAD: The LAD was addressed with a 3.0 x 18 mm [place], the left main with a 3.5 x 12 mm [place]. Result was 0% residual stenosis. OVERALL IMPRESSION: Successful PTCA stent of the left main and LAD, both going from 70% to 75% initial stenosis to 0% residual. TRANSINT:[id number] Voice Confirmation ID: [id number] DOCUMENT ID: [id number] PARUL RUIZ MD at 0924 CC: [id number] DICTATION DATE: 03/25/18 1306 PEST CONTROL APPLICATOR: 03/25/18 1317 [place] [address]
--- NOTE | ~2018-03-24 | HEMODYNAMI ---
PATIENT:SELINA BENAVIDES MEDICAL RECORD: [id number] : 49 LOCATION:D. D.9 ADMISSION DATE: 03/24/18 Generatedon:03/25/201813:07 Patient name: SELINA BENAVIDES Patient #: [id number] SSN: D OB: 1945 Date of study: 03/25/2018 Page: Of Hemodynamic Procedure Report Patient Data Patient Demographics Procedure consent was obtained First Name: SELINA Gender: Male Last Name: MAKAYLA : 1945 Patient #: [id number] Age: 72 year(s) Race: Unknown Additional ID: [id number] Contact details [address]: [address] [place] [address] [facility] State: [place] City: [place] Zip code: [address] Past Medical History Allergies Allergen Reaction Date Comments Reported Sulfa drugs 03/18/2018 Sulfa drugs 03/19/2018 Other allergy 03/25/2018 Sulfa Admission Admission Data Admission Date: 03/24/2018 Admission Time: 14:17 Room #: D.2119 Procedure Procedure Types Cath Procedure Diagnostic Procedure C [facility] w/Coronaries FFR/IVUS Intra-Coronary IVUS Initial PCI Procedure Coronary Stent Coronary Stent Initial x2 Procedure Description Procedure Date Procedure Date: 03/25/2018 Procedure Start Time: 12:45 Procedure End Time: 13:06 Procedure Staff Name Function Agustin Garcia MD Performing Physician Vicky Pruitt RT Monitor Lidia Lopes RT Scrub Manoj Casey RN Nurse Procedure Data Cath Procedure Fluoroscopy Diagnostic fluoroscopy Total fluoroscopy Time: 5.3 time: 5.3 min min Diagnostic fluoroscopy Total fluoroscopy dose: dose: 1 mGy 202 mGy Contrast Material Contrast Material Type Amount (ml) Isovue 300 137 Entry Location Entry Primary Successful Side Size Upsize Upsize Entry Closure Succes sful Closure Location (Fr) 1 (Fr) 2 (Fr) Remarks Device Remarks Femoral Right 5 Fr 6 Fr Exoseal artery Short Estimated blood loss: 10 ml Diagnostic catheters Device Type Used For End Catheter Placement MULTIPACK Pigtail 5 Fr Procedure catheter MULTIPACK JL 4.0 5Fr Procedure catheter MULTIPACK 3DRC 5Fr Procedure catheter Procedure Complications No complications Procedure Medications Medication Administration Route Dosage Oxygen etCO2 Nasal cannula 2 l/min Heparin Flush Bag added to field 2 bags (1000units/500ml NS) 0.9% NaCl I.V. 100 ml/hr Fentanyl I.V. 50 mcg Versed I.V. 1 mg Fentanyl I.V. 50 mcg Versed I.V. 1 mg Fentanyl I.V. 50 mcg Fentanyl I.V. 50 mcg Heparin Bolus I.V. 4000 units Hemodynamics Rest Heart Rate: 69 (bpm) Pressure Samples Time Site Value (mmHg) Purpose Heart Use Rate(bpm) 12:47 LV 196/23,35 Snapshot 60 Gradients Valve Time Site Site Mean SEP/DFP Peak To Heart Use 1 2 (mmHg) (sec/min) Peak Rate (mmHg) (bpm) Aortic 12:48 LV AO Snapshots Pre Cath Intra NCS Post Cath Vital Signs Time Heart Resp SPO2 etCO2 NIBP (mmHg) Rhythm Pain Sedation Rate (ipm) (%) (mmHg) Status Level (bpm) 12:07:55 64 17 95 0 185/87(151) NSR 0 (11) 10(A) , No pain 12:12:23 57 17 96 31.9 181/82(152) NSR 0 (11) 10(A) , No pain 12:16:47 63 17 97 26.6 185/89(156) NSR 0 (11) 10(A) , No pain 12:21:16 58 16 97 31.2 177/81(158) NSR 0 (11) 10(A) , No pain 12:26:52 59 16 97 20.5 183/83(153) NSR 0 (11) 10(A) , No pain 12:31:18 68 16 96 27.4 177/88(157) NSR 0 (11) 10(A) , No pain 12:35:48 58 16 95 37.2 173/73(147) NSR 0 (11) 10(A) , No pain 12:40:12 67 16 96 36.5 175/86(135) NSR 0 (11) 10(A) , No pain 12:44:35 67 17 96 40.3 178/90(146) NSR 0 (11) 10(A) , No pain 12:48:59 58 17 97 38.8 177/89(147) NSR 0 (11) 10(A) , No pain 12:53:21 66 16 99 39.5 186/91(150) NSR 0 (11) 10(A) , No pain 12:57:47 59 16 96 34.2 180/85(139) NSR 0 (11) 10(A) , No pain 13:02:09 60 16 97 28.9 189/94(161) NSR 0 (11) 10(A) , No pain 13:05:43 69 16 98 40.3 180/88(151) NSR 0 (11) 10(A) , No pain Medications Time Medication Route Dose Verified Delivered Reason Notes E ffectiveness by by 12:11:18 Oxygen etCO2 2 Agustin Manoj Per Nasal l/min Jose Casey RN physician cannula 12:11:26 Heparin Flush added 2 Agustin Manoj used for Bag to bags Jose Casey RN procedure (1000units/500ml field NS) 12:11:34 0.9% NaCl I.V. 100 Agustin Aranda Per ml/hr Jose Casey RN physician 12:39:50 Fentanyl I.V. 50 Agustin Manoj for sedation mcg Jose Casey RN 12:39:55 Versed I.V. 1 mg Agustin Manoj for sedation Jose Casey RN 12:45:19 Fentanyl I.V. 50 Agustin Manoj for sedation mcg Jose Casey RN 12:45:22 Versed I.V. 1 mg Agustin Thurmany for sedation Jose Casey RN 12:47:24 Fentanyl I.V. 50 Agustin Manoj for sedation mcg Jose Casey RN 12:52:17 Fentanyl I.V. 50 Agustin Manoj for sedation mcg Jose Casey RN 12:53:40 Heparin Bolus I.V. 4000 Agustin Aranda for units Jose Casey RN antiplatelet therapy Procedure Log Time Note 11:45:44 aMnoj Casey RN sent for patient. Start room use. 11:45:44 Time tracking: Regular hours (M-F 7:00 - 5:00) 11:45:50 Plan of Care:Hemodynamics will remain stable., Cardiac rhythm will remain stable., Comfort level will be maintained., Respiratory function will remain adequate., Patient/ family verbilizes understanding of procedure., Procedure tolerated without complication., Recovers from procedure without complications.. 12:06:44 Vital chart was started 12:11:11 Baseline sample Acquired. 12:11:18 Oxygen 2 l/min etCO2 Nasal cannula was administered by Manoj Casey RN; Per physician; 12:11:23 Full Disclosure recording started 12:11:26 Heparin Flush Bag (1000units/500ml NS) 2 bags added to field was administered by Manoj Casey RN; used for procedure; 12:11:33 H&P Date Dictated: 03/24/2018 Within 30 days and on chart., H&P Addendum completed by physician on day of procedure. (MUST COMPLETE FOR ALL OUTPATIENTS). 12:11:34 0.9% NaCl 100 ml/hr I.V. was administered by Manoj Casey RN; Per physician; 12:11:35 Pre-procedure instructions explained to patient. 12:11:37 Family in waiting room. 12:11:40 Patient NPO since Midnight. 12:11:52 Patient allergic to Other allergySulfa 12:11:56 Is the patient allergic to Iodine/contrast media? No. 12:11:57 Was the patient premedicated? Yes 12:12:05 Is patient on blood thinner?Yes 12:12:08 ACC The patient was administered the following blood thiners within the last 24 hours: ACCPlavix 12:12:10 Patient diabetic? Yes. 12:12:11 If diabetic: On Metformin? Yes 12:12:13 If on Metformin: Last Dose? 03/24/2018 12:12:34 Snore? Yes 12:12:36 Sleep apnea? Yes 12:12:44 Airway obstruction? Yes COPD 12:12:54 Dentures? No ? 12:13:01 Patient pain scale 0/10 ?. 12:13:10 IV patent on arrival in left forearm with 0.9% NaCl at [facility]. 12:13:14 Lab results completed and on chart. 12:13:24 Right groin area was prepped with chlora-prep and draped in sterile fashion 12:13:25 Alarms reviewed by R. N. 12:13:25 Sharps counted by scrub and verified by RMaryN. 12:13:26 Physician paged 12:14:01 Use device set Femoral Dx 12:14:33 ACIST Syringe (40871) opened to sterile field. 12:14:34 Bag Decanter (2002S) opened to sterile field. 12:14:34 Medline Cath Pack ([id number]) opened to sterile field. 12:14:35 DIAGNOSTIC WIRE .035 260cm J wire (218933) opened to sterile field. 12:14:36 ACIST Hand Control (91922) opened to sterile field. 12:14:36 ACIST Manifold (70806) opened to sterile field. 12:14:37 DIAGNOSTIC Multipack 5Fr catheter set (CN1251) opened to sterile field. 12:14:39 PERCUTANEOUS ENTRY 19GA needle opened to sterile field. 12:14:41 SHEATH Prelude 5Fr 0.035 (RXL-2B-07-035) opened to sterile field. 12:20:09 Patient received from Med II to [facility] 2 Alert and oriented. Tansferred to table in Supine position. 12:20:10 Warm blankets applied, and ellie hugger turned on for patient comfort. 12:20:11 Correct patient and procedure confirmed by team. 12:20:14 Signed procedure consent form obtained from patient. 12:20:32 Zero performed for pressure channel P1 12:28:18 Zero performed for pressure channel P1 12:39:28 Physician arrived 12:39:29 --------ALL STOP TIME OUT------ 12:39:29 Final Timeout: patient, procedure, and site verified with staff and physician. All members of the team are in agreement. 12:39:32 Right groin site verified by team. 12:39:35 Physical assessment completed. ASA score P 2 - A patient with mild systemic disease as per Agustin Garcia MD. 12:39:41 Sedation plan: IV Moderate Sedation Medication:Versed, Fentanyl 12:39:50 Fentanyl 50 mcg I.V. was administered by aMnoj Casey RN; for sedation; 12:39:55 Versed 1 mg I.V. was administered by Manoj Casey RN; for sedation; 12:45:19 Fentanyl 50 mcg I.V. was administered by Manoj Casey RN; for sedation; 12:45:22 Versed 1 mg I.V. was administered by Manoj Casey RN; for sedation; 12:45:22 Procedure started. 12:45:41 Local anesthetic to right femoral artery with Lidocaine 2% by Agustin Garcia MD.INITIAL ACCESS ONLY 12:45:50 A 5 Fr sheath was inserted into the Right Femoral artery 12:45:54 J wire advanced. 12:46:20 A MULTIPACK Pigtail 5 Fr catheter was advanced over the wire and used for Procedure. 12:46:25 LV angiography performed. 12:47:24 Fentanyl 50 mcg I.V. was administered by Manoj Casey RN; for sedation; 12:48:09 LV gram done using VIRAMONTES 12:48:16 EF : 50 % 12:48:17 Catheter removed. 12:48:25 A MULTIPACK JL 4.0 5Fr catheter was advanced over the wire and used for Procedure. 12:48:46 LCA angiography performed. 12:50:14 Catheter removed. 12:50:21 A MULTIPACK 3DRC 5Fr catheter was advanced over the wire and used for Procedure. 12:50:26 RCA angiography performed. 12:52:11 GUIDE 6FR XBLAD 3.5 catheter ([id number]) opened to sterile field. 12:52:15 CHOICE PT Extra Support 182cm wire ([id number]) opened to sterile field. 12:52:15 INFLATOR Merit BasixCompak (WU5504) opened to sterile field. 12:52:16 SHEATH Prelude 6Fr 0.035 (EAU-8B-27-035) opened to sterile field. 12:52:17 Fentanyl 50 mcg I.V. was administered by Manoj Casey RN; for sedation; 12:52:17 [place] Telida Eagleye IVUS Catheter (86826M) opened to sterile field. 12:52:25 Sheath upsized to a 6 Fr Short. 12:52:42 6 Fr XBLAD 3.5 guide catheter was inserted over the wire 12:52:51 choice pt wire advanced. 12:53:30 Wire advanced across lesion. 12:53:37 IVUS catheter advanced over wire. 12:53:40 Heparin Bolus 4000 units I.V. was administered by Manoj Casey RN; for antiplatelet therapy; 12:56:34 IVUS catheter removed over wire. 12:57:50 Place stent Inflation Number: 1 A DEMOND RX 3.0 x 18 stent ([id number]) was prepped and advanced across the Dist LAD. The stent was deployed at 21 DIVYA for 0:13 (min:sec). 12:59:16 Stent catheter was removed intact over wire. 13:00:35 Place stent Inflation Number: 1 A DEMOND RX 3.5 x 12 stent ([id number]) was prepped and advanced across the Prox LAD. The stent was deployed at 15 DIVYA for 0:08 (min:sec). 13:01:51 Stent catheter was removed intact over wire. 13:01:52 Wire removed. 13:01:53 Guide catheter removed. 13:02:01 EXOSEAL 6Fr (EX600) opened to sterile field. 13:02:02 Tegaderm 4 x 4 (1626W) opened to sterile field. 13:02:15 Sheath removed intact; hemostasis achieved with Exoseal to the Right Femoral artery. 13:02:26 Procedure ended.(Physican Out) 13:02:32 Fluoroscopy time 05.30 minutes. 13:02:36 Fluoroscopy dose: 2020 mGy 13:02:36 Flurop Dose total: 2020 13:03:07 Contrast amount:Isovue 300 137ml. 13:03:08 Sharps counted by scrub and verified by R.N. 13:03:10 Insertion/operative site no bleeding no hematoma. 13:03:14 Post right femoral artery:stable 13:03:16 Post Procedure Pulses reassessed and unchanged 13:03:19 Post-procedure physical assessment completed. ASA score P 2 - A patient with mild systemic disease as per Agustin Garcia MD. 13:03:27 Post procedure rhythm: unchanged. 13:03:29 Estimated blood loss: 10 ml 13:03:32 Post procedure instruction explained to patient.Patient verbalizes understanding. 13:05:04 Procedure type changed to Cath procedure, Diagnostic procedure, LHC, LHC w/Coronaries, FFR/IVUS, Intra-Coronary IVUS Initial, PCI procedure, Coronary Stent, Coronary Stent Initial x2 13:05:07 Procedure and supply charges have been captured, reviewed, submitted and are correct. 13:06:31 Procedure Complication : No complications 13:06:33 Vital chart was stopped 13:06:34 See physician's report for complete and final results. 13:06:36 Report given to Pre/Post Procedure Room. 13:06:39 Patient transfered to Pre/Post Procedure Room with Stretcher. 13:06:47 Procedure ended. 13:06:47 Full Disclosure recording stopped 13:06:56 End room use (Document Last) 13:07:13 ACC-PCI Only Patient was given prescriptions, or instructed by Agustin Garcia MD to start/continue the following medications upon discharge: Plavix Intervention Summary Intervention Notes Time ActionType Lesion and Equipment Used Action# Pressure Duration Attributes 12:57:50 Place stent Dist LAD DEMOND RX 3.0 x 1 21 00:13 18 stent ([id number]) 13:00:35 Place stent Prox LAD DEMOND RX 3.5 x 1 15 00:08 12 stent ([id number]) Device Usage Item Name Manufacture Quantity Catalog Number Hospital Part Current Minimal Lot# / Charge Number Stock Stock Serial# Code ACIST Syringe Acist 1 75352 479868 710633 799214 20 (44286) [employer] Bag Decanter Microtek 1 914843 28399 586467 5 () Medical Inc. Medline Cath Medline 1 [id number] 930526 79298 393025 5 Pack ([id number]) DIAGNOSTIC WIRE [facility] 1 299237 537492 644470 107984 30 .035 260cm J wire (883861) ACIST Hand Acist 1 89339 804481 500656 203395 5 Control (19590) [employer] Inc ACIST Manifold Acist 1 20545 515963 590009 139384 5 (51757) [employer] Inc DIAGNOSTIC Cardinal 1 XV7037 516941 07463 484902 30 Multipack 5Fr Health catheter set (XI3360) PERCUTANEOUS Cook Medical 1 E90026 140405 480064 5 ENTRY 19GA needle SHEATH Prelude Merit 1 CKW-5E-00-035 248728 681679 365619 5 5Fr 0.035 Medical (WLX-9U-60-035) MULTIPACK Cardinal 1 948812 5 Pigtail 5 Fr Health catheter MULTIPACK JL Cardinal 1 507303 5 4.0 5Fr Health catheter MULTIPACK 3DRC Cardinal 1 721992 5 5Fr catheter Health GUIDE 6FR XBLAD Cardinal 1 [id number] 398571 412066 093124 10 3.5 catheter Health (35227503) CHOICE PT Extra [place] 1 [id number] 432088 736686 717620 5 Support 182cm Scientific wire ([id number]) INFLATOR Merit Merit 1 MH4100 486340 726575 392401 15 BasixComokk Medical (GK7684) SHEATH Prelude Merit 1 SAW-8K-00-35 818693 3375857 661986 5 6Fr 0.035 Medical (ILY-3J-76035) [place] Palouse 1 66848I 896617 268098 312191 8 Telida Eagleye IVUS Catheter (27377N) DEMOND RX 3.0 x Medtronic 1 [id number] 334703 9339296 598683 5 [id number] 18 stent ([id number]) DEMOND RX 3.5 x Medtronic 1 [id number] 400127 6110681 392058 5 [id number] 12 stent ([id number]) EXOSEAL 6Fr Cardinal 1 EX600 537484 540000 917237 10 (EX600) Health Tegaderm 4 x 4 3M 1 1626W 865607 649623 204893 5 (1626W) Signature Audit [place] Stage Time Signature Unsigned Intra-Procedure 03/25/2018 Vicky Pruitt 1:07:37 PM RT(R) Signatures Monitor : Vicky Pruitt Signature : RT Date : Time : [address] [id number] [place] [address]
--- NOTE | ~2018-03-24 | MORECARE ---
CASE MANAGEMENT DISCHARGE SUMMARY PATIENT: SELINA BENAVIDES UNIT: [id number] ADM DATE: 03/24/18 AGE: 72 : [birth year] SEX: M ROOM/BED: D.2119 AUTHOR: BURKE VIERA PHYSICIAN: REFERRING PHYSICIAN: PARUL RUIZ MD DATE OF SERVICE: 03/29/18 Discharge Plan Patient Name: SELINA BENAVIDES [facility] [place] : 1945 Planned Disposition: Home Anticipated Discharge Date: 03/26/18 Discharge Date: 03/26/2018 Expected LOS: 2 Initial Reviewer: [id number] Initial Review Date: 03/29/2018 Generated: 03/29/18 9:54 am Patient Name: SELINA BENAVIDES Page 26330 at 0854 All edits/amendments must be made on the electronic document DICTATION DATE: 03/29/18 0854 RUBBER FLAP CUTTER: SHAHRIAR 03/29/18 0854 RPT#: [id number] DC DATE:03/26/18 STATUS: DIS IN [facility] [address] [place] [address] END OF REPORT
--- NOTE | ~2018-03-24 | DS ---
PATIENT:SELINA KULKARNI :[birth year] MEDICAL RECORD: [id number] DISCHARGE SUMMARY ADMISSION DATE: 03/24/18 DISCHARGE DATE: 03/26/18 DATE OF DISCHARGE: 03/26/2018. DIAGNOSES: 1. Unstable angina. 2. Coronary artery disease. 3. PTCA stent LAD and left main this admission. 4. Bronchitis. 5. Hypertension. 6. Hyperlipidemia. HOSPITAL COURSE: Mr. Kulkarni presents with anginal symptomatology as well as bronchitis, found to have 2-vessel disease of the left main, LAD, underwent successful PTCA stent of these territories. Discharged home to continue aspirin and Plavix. We did add Augmentin and Phenergan with codeine cough syrup for the bronchitis. Will follow up with [facility] as previously scheduled within 1 month. TRANSINT:[id number] Voice Confirmation ID: [id number] DOCUMENT ID: [id number] PARUL RUIZ MD at 1913 CC: [id number] DICTATION DATE: 03/26/18 0955 MULTIMEDIA SPECIALIST: 03/27/18 0041 DIS IN 03/26/18 [facility] [address] [place] [address]
[~2018-03-24 12:52] MED LIST: ASPIRIN81 MG PO; PLAVIX75 MG PO
[2018-03-24] MEDS ORDERED: FUROSEMIDE20 MG PO (12:57)
[2018-03-24] MEDS ORDERED: GLARGINE SC ×2 (12:58→12:59)
[2018-03-24] MEDS ORDERED: COZAAR100 MG PO (12:59)
[2018-03-24] MEDS ORDERED: CLARITIN 10 MG10 MG PO (12:59)
[2018-03-24] MEDS ORDERED: ISOSORBIDE MONO60 M1 PO (12:59)
[2018-03-24] MEDS ORDERED: TOPROL XL25 MG PO (13:00)
[2018-03-24] MEDS ORDERED: MYRBETRIQ25 MG PO (13:00)
[2018-03-24] MEDS ORDERED: NIFEDIPINE60 MG/BOTT PO (13:00)
[2018-03-24] MEDS ORDERED: GLUCOPHAGE1000 MG PO (13:00)
[2018-03-24] MEDS ORDERED: POTASSIUM CHLO10 ME1 PO (13:01)
[2018-03-24] MEDS ORDERED: ALDACTONE25 MG PO (13:01)
[2018-03-24] MEDS ORDERED: FLOMAX0.4 MG PO (13:01)
[2018-03-24] MEDS ORDERED: NITROQUICK0.4 MG SL (13:01)
[2018-03-24] MEDS ORDERED: ZOLOFT100 MG PO (13:01)
[2018-03-24] MEDS ORDERED: CRESTOR40 MG PO (13:02)
[2018-03-24] MEDS ORDERED: TRAZODONE HCL100 MG PO (13:02)
[2018-03-24 13:39] LABS: ALBUMIN 3.4 g/dL (3.4-5.0); ALKALINE PHOSPHATASE 90 U/L (46-116); ALT (SGPT) 27 U/L (10-68); CALC OSMOLALITY 284 mosm/kg (275-300); CALCIUM 8.4 mg/dL (8.5-10.1); CARBON DIOXIDE 27.3 mmol/L (21.0-32.0); CHLORIDE - SERUM 104 mmol/L (98-107); CREATININE - SERUM 0.9 mg/dL (0.6-1.3); POTASSIUM - SERUM 3.8 mmol/L (3.5-5.1); PROTEIN - SERUM 7.1 g/dL (6.4-8.2); SODIUM 140 mmol/L (136-145); UREA NITROGEN 14 mg/dL (7-18); eGFR NON AFRICAN AMERICAN 89 mL/min (90-120)
[2018-03-24 13:42] LABS: GLUCOSE 180 mg/dL (74-106)
[2018-03-24 13:48] LABS: BASOPHILS 0.2 % (0-2); EOSINOPHILS 1.7 % (0-7); HEMATOCRIT 36.9 % (42.0-54.0); HEMOGLOBIN 12.5 g/dL (13.5-17.5); IMMATURE GRANULOCYTES 0.2 % (0-5); LYMPHOCYTES 15.3 % (15-50); MCH 26.9 pg (26.0-34.0); MCHC 33.9 g/dL (31.0-37.0); MCV 79.5 fL (80.0-100.0); MEAN PLATELET VOLUME 10.3 fL (7.4-10.4); MONOCYTES 4.5 % (2-11); NEUTROPHILS 78.1 % (40-80); RBC 4.64 10x6/uL (4.20-6.10); RDW 13.8 % (11.5-14.5); WBC 9.2 10x3/uL (4.8-10.8)
[2018-03-24 13:50] LABS: PLATELET COUNT 268 10x3/uL (130-400)
[2018-03-24 13:51] LABS: APTT 25.7 SECONDS (22.8-39.4); INR 0.95 (0.85-1.17); PROTIME 12.3 SECONDS (11.6-15.0)
[2018-03-24 13:55] LABS: CKMB 2.7 U/L (0.0-3.6); CREATINE KINASE 279 UL (21-232); MAGNESIUM - SERUM 1.8 mg/dL (1.8-2.4)
[2018-03-24 14:00] VITALS: BP 149/66
[2018-03-24 14:02] LABS: TROPONIN-I 0.064 ng/mL (0.000-0.060)
[2018-03-24 15:47] LABS: TROPONIN-I 0.064 ng/mL (0.000-0.060)
[2018-03-24 16:04] LABS: CALC OSMOLALITY 286 mosm/kg (275-300); CALCIUM 8.5 mg/dL (8.5-10.1); CARBON DIOXIDE 26.9 mmol/L (21.0-32.0); CHLORIDE - SERUM 105 mmol/L (98-107); CREATININE - SERUM 0.9 mg/dL (0.6-1.3); GLUCOSE 140 mg/dL (74-106); POTASSIUM - SERUM 3.9 mmol/L (3.5-5.1); SODIUM 143 mmol/L (136-145); UREA NITROGEN 13 mg/dL (7-18); eGFR NON AFRICAN AMERICAN 89 mL/min (90-120)
[2018-03-24 17:03] VITALS: BP 149/66; BMI 35.6
[2018-03-24 20:19] LABS: CKMB 2.1 U/L (0.0-3.6); CREATINE KINASE 233 UL (21-232); TROPONIN-I 0.044 ng/mL (0.000-0.060)
[2018-03-24 21:31] VITALS: BP 163/68
[2018-03-25 01:11] VITALS: BP 164/68
[2018-03-25 02:56] LABS: BASOPHILS 0.2 % (0-2); EOSINOPHILS 4.1 % (0-7); HEMATOCRIT 34.6 % (42.0-54.0); HEMOGLOBIN 11.5 g/dL (13.5-17.5); IMMATURE GRANULOCYTES 0.2 % (0-5); LYMPHOCYTES 18.4 % (15-50); MCH 26.6 pg (26.0-34.0); MCHC 33.2 g/dL (31.0-37.0); MCV 79.9 fL (80.0-100.0); MEAN PLATELET VOLUME 9.9 fL (7.4-10.4); MONOCYTES 5.8 % (2-11); NEUTROPHILS 71.3 % (40-80); PLATELET COUNT 223 10x3/uL (130-400); RBC 4.33 10x6/uL (4.20-6.10); RDW 13.9 % (11.5-14.5); WBC 8.6 10x3/uL (4.8-10.8)
[2018-03-25 03:22] LABS: ALKALINE PHOSPHATASE 74 U/L (46-116); ALT (SGPT) 23 U/L (10-68); BILIRUBIN - TOTAL 0.32 mg/dL (0.2-1.3); CALC OSMOLALITY 278 mosm/kg (275-300); CALCIUM 8.2 mg/dL (8.5-10.1); CARBON DIOXIDE 30.5 mmol/L (21.0-32.0); CHLORIDE - SERUM 105 mmol/L (98-107); CKMB 2.7 U/L (0.0-3.6); CREATINE KINASE 267 UL (21-232); CREATININE - SERUM 0.8 mg/dL (0.6-1.3); GLUCOSE 68 mg/dL (74-106); POTASSIUM - SERUM 3.7 mmol/L (3.5-5.1); PROTEIN - SERUM 6.4 g/dL (6.4-8.2); SODIUM 140 mmol/L (136-145); TROPONIN-I 0.052 ng/mL (0.000-0.060); UREA NITROGEN 17 mg/dL (7-18); eGFR NON AFRICAN AMERICAN > 90 mL/min (90-120)
[2018-03-25 07:25] VITALS: BP 166/79
[2018-03-25 12:10] VITALS: BP 139/63
[2018-03-25 12:41] VITALS: Ht 167.6 cm; Wt 99.8 kg
[2018-03-25 14:29] VITALS: BP 164/70
[2018-03-25 15:46] VITALS: BP 156/60
[2018-03-25 22:02] VITALS: BP 140/44
[2018-03-26 01:00] VITALS: BP 159/63
[2018-03-26 04:00] VITALS: BP 175/64
[2018-03-26 08:08] VITALS: BP 146/65
[2018-03-26] MEDS ORDERED: AMOX TR-K CLV 21 TAB PO (10:11)
[2018-03-26] MEDS ORDERED: PHENERGAN/CODEINE PO (10:22)
[2018-03-26 10:55] VITALS: BP 176/86
== END 2018-03-26 12:32 | disposition home or self-care (01) ==
LOC: OBSVTIME → D.ER 12:52 → D.OPS 12:52 → D.M2 14:17 → D.ER 14:17 → D.M2 14:17 → D.EDHOLD 14:17 → OBSVTIME 14:44 → D.M2 15:02 → D.EDHOLD 15:02 → EDSTATUS 03-25 10:00 → D.M2 03-26 12:32 → D.OPS 03-26 12:32
PROVIDERS: Family Medicine; Internal Medicine Interventional Cardiology
DX: I25.110 Atherosclerotic heart disease of native coronary artery with unstable angina pectoris (principal); Z95.5 Presence of coronary angioplasty implant and graft; T82.855A Stenosis of coronary artery stent, initial encounter; Y83.8 Other surgical procedures as the cause of abnormal reaction of the patient, or of later complication, without mention of misadventure at the time of the procedure; J40 Bronchitis, not specified as acute or chronic; I10 Essential (primary) hypertension; E78.5 Hyperlipidemia, unspecified; Z86.73 Personal history of transient ischemic attack (TIA), and cerebral infarction without residual deficits; E11.9 Type 2 diabetes mellitus without complications; F32.9 Major depressive disorder, single episode, unspecified
CPT/HCPCS: 93458; 92978; 92979; C9600 ×2

== ENCOUNTER 2018-05-03 12:45 | Emergency (ER) | payer MEDICARE, MEDICAID ==
[~2018-05-03] VITALS: Ht 167.6 cm; Wt 97.5 kg
[~2018-05-03 12:45] MED LIST changes: +ALDACTONE25 MG PO; +AMOX TR-K CLV 21 TAB PO; +CLARITIN 10 MG10 MG PO; +COZAAR100 MG PO; +CRESTOR40 MG PO; +FLOMAX0.4 MG PO; +FUROSEMIDE20 MG PO; +GLARGINE SC; +GLUCOPHAGE1000 MG PO; +ISOSORBIDE MONO60 M1 PO; +MYRBETRIQ25 MG PO; +NIFEDIPINE60 MG/BOTT PO; +NITROQUICK0.4 MG SL; +PHENERGAN/CODEINE PO; +POTASSIUM CHLO10 ME1 PO; +TOPROL XL25 MG PO; +TRAZODONE HCL100 MG PO; +ZOLOFT100 MG PO
[2018-05-03 12:52] VITALS: Ht 167.6 cm; Wt 97.5 kg
[2018-05-03 14:03] LABS: BASOPHILS 0.1 % (0-2); EOSINOPHILS 0 % (0-7); HEMATOCRIT 39.9 % (42.0-54.0); HEMOGLOBIN 13.6 g/dL (13.5-17.5); IMMATURE GRANULOCYTES 0.2 % (0-5); LYMPHOCYTES 10.3 % (15-50); MCH 27.1 pg (26.0-34.0); MCHC 34.1 g/dL (31.0-37.0); MCV 79.5 fL (80.0-100.0); MEAN PLATELET VOLUME 10.4 fL (7.4-10.4); NEUTROPHILS 86.4 % (40-80); PLATELET COUNT 210 10x3/uL (130-400); RBC 5.02 10x6/uL (4.20-6.10); RDW 13.9 % (11.5-14.5)
[2018-05-03 14:14] LABS: ALBUMIN 3.7 g/dL (3.4-5.0); ALKALINE PHOSPHATASE 105 U/L (46-116); ALT (SGPT) 18 U/L (10-68); BILIRUBIN - TOTAL 0.52 mg/dL (0.2-1.3); CALC OSMOLALITY 289 mosm/kg (275-300); CALCIUM 8.7 mg/dL (8.5-10.1); CARBON DIOXIDE 26.2 mmol/L (21.0-32.0); CHLORIDE - SERUM 102 mmol/L (98-107); CREATININE - SERUM 0.9 mg/dL (0.6-1.3); POTASSIUM - SERUM 4.5 mmol/L (3.5-5.1); PROTEIN - SERUM 7.8 g/dL (6.4-8.2); SODIUM 138 mmol/L (136-145); UREA NITROGEN 20 mg/dL (7-18); eGFR NON AFRICAN AMERICAN 89 mL/min (90-120)
[2018-05-03 14:15] LABS: GLUCOSE 301 mg/dL (74-106)
[2018-05-03] MEDS ORDERED: HYDROCODON-ACE1 EAC7 PO (16:09)
[2018-05-03 16:14] VITALS: BP 167/70
== END 2018-05-03 16:14 | disposition home or self-care (01) ==
LOC: D.ER 12:45
PROVIDERS: Family Medicine
DX: M16.12 Unilateral primary osteoarthritis, left hip (principal); E11.65 Type 2 diabetes mellitus with hyperglycemia; I73.9 Peripheral vascular disease, unspecified; Z86.73 Personal history of transient ischemic attack (TIA), and cerebral infarction without residual deficits; I10 Essential (primary) hypertension